=== PATIENT | male | born 1955 | race Caucasian/White ===

== ENCOUNTER 2018-06-06 14:50 | Inpatient (IN) ==
[2018-06-06] MEDS ORDERED: Bisacodyl 10 MG RECTAL SUPPOSITORY RC PRN (15:06)
[2018-06-06] MEDS ORDERED: Atropine 1% Opth Drops 100 DROP/5 ML BOTTLE SL PRN (15:06)
[2018-06-06] MEDS: *HR* FentaNYL (PF) 100 MCG/2 ML VIAL IVP SCH ×3 (16:52→21:35)
[2018-06-06] MEDS: *HR* Promethazine 25 MG/ML VIAL IVP PRN ×2 (19:00→23:06)
[2018-06-06] MEDS: *HR* FentaNYL (PF) 100 MCG/2 ML VIAL IVP PRN (19:00)
[2018-06-06] MEDS: *HR* LORazepam 2 MG/ML VIAL IVP PRN (22:49)
[2018-06-07] MEDS: *HR* FentaNYL (PF) 100 MCG/2 ML VIAL IVP SCH ×6 (01:05→14:44)
[2018-06-07 07:12] VITALS: BP 45/29
[2018-06-07] MEDS: *HR* Promethazine 25 MG/ML VIAL IVP PRN (08:18)
[2018-06-07] MEDS: *HR* FentaNYL (PF) 100 MCG/2 ML VIAL IVP PRN ×3 (09:54→18:45)
[2018-06-07] MEDS: *HR* LORazepam 2 MG/ML VIAL IVP PRN ×4 (09:59→17:48)
[2018-06-07] MEDS ORDERED: *HR* FentaNYL (PF) 100 MCG/2 ML VIAL IVP PRN (11:38)
--- NOTE | 2018-06-07 11:38 | Pallative History & Physical ---
Date of Encounter: 06/08/18 Time of Encounter: 11:38 Assessment and Plan (1) Abdominal pain Status: Acute Patient was started on fentanyl 25mcg q3hrs scheduled and q1hr prn. He has been receiving all doses, as well as ativan this morning. He remains restless, tossing and turning in bed, and moaning in pain. Fentanyl dose increased to 50 mcg q3hrs scheduled. continue current prn doses. Qualifiers: Abdominal location: generalized Qualified Code(s): R10.84 - Generalized abdominal pain (2) Agitation Status: Acute Ativan 0.5mg q4hr prn. patient is received 2 doses in 24hrs. Per family it seems to help but wears out fast. Will change to 1mg q2hrs (3) Hospice care Status: Acute Nausea: promethazine Iv q4hrs anxiety: Ativan q4hrs prn, will add Haldol 1 mg q2hrs prn Secretions: atropine prn Constipation: Bisacodyl RC HS prn (4) Goals of care, counseling/discussion Status: Acute Family was present at the bedside and updated frequently on patient's condition and plan of care. Patient continues to need [facility] admission for management of pain, use of IV medication, and frequent medication dosing and changes. Appears to be actively dying. In the unlikely event that patient stabilizes, plan is to return home with hospice. (5) Acute kidney injury superimposed on CKD Status: Chronic Patient is anuric, will remove mann. (6) Metastatic malignant neoplasm of unknown primary site Status: Acute comfort measures only Internal Medicine - H&P: HPI Chief complaint: abdominal pain Admitted From: Intrahospital Transfer Plans for Post Hospital Care: at Medical Facility History of present illness: Mr. 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 On admission labs showed metabolic acidosis with Bicarb 8, ARPAN cr 9.4. Was admitted to MICU. Nephrology consult was placed and pt declined HD. Palliative care met with patient and family, decision was made for DNRCC and de-escalation of care. Patient was in pain, unable to tolerate PO due to nausea and vomiting. He was admitted to [facility] for symptom management. Today patient was drowsy, opening eyes transiently to name calling and touch, moaning and restless due to pain. Nodding yes or no, but not speaking. Mann beg is empty. Per the nausea improved. Past Med Surg Social Fam HX - Past Medical History Medical history: cancer, CHF, diabetes, hyperlipidemia, hypertension, renal disease Additional medical history: liver mass, bells palsy, mono with enlarged spleen, sleep apnea, Psychiatric history: no psych history - Past Surgical History Surgical History: appendectomy, orthopedic, other Additional surgical history: lazer eye surgery,colon polyps,liver biopsy, left shoulder tendon repair bone spur removal-2013, tonsil removal-1961, macular degen laser eye surgery-2015, colonoscopy-2017, liver biospy-2018 - Social History Smoking Status: Current every day smoker Smokeless Tobacco Status: No Alcohol use: none Drug use: none Internal Medicine - H&P: Meds Carvedilol [Coreg] 6.25 mg PO BIDWM 08/24/17 [History] Insulin Glargine,Hum.rec.anlog [Lantus Solostar] 80 unit SQ BID 08/24/17 [History] NIFEdipine [Nifedipine ER] 90 mg PO DAILY 08/24/17 [History] Tamsulosin [Flomax] 0.4 mg PO DAILY 08/24/17 [History] Verapamil HCl [Verapamil ER] 180 mg PO DAILY 08/24/17 [History] Furosemide [Lasix] 80 mg PO DAILY 10/06/17 [History] Lisinopril [Zestril] 40 mg PO DAILY 10/06/17 [History] Aspirin [Lo-Dose Aspirin EC] 81 mg PO DAILY 06/05/18 [History] Fluticasone Propionate Nasal [Flonase] 50 mcg NS DAILY PRN 06/05/18 [History] Varenicline Tartrate [Chantix] 1 mg PO BID 06/05/18 [History] Allergy/AdvReac Type Severity Reaction Status Date / Time Sulfa (Sulfonamide Allergy Anaphylaxis Verified 05/16/18 13:54 Antibiotics) ROS unobtainable: due to mental status - Gastrointestinal Gastrointestinal: abdominal pain, no nausea, no vomiting Palliative Care-Exam - Constitutional Vitals: Temp Pulse Resp BP Pulse Ox 97.4 F L 73 16 45/29 100 06/06/18 19:31 06/07/18 07:10 06/07/18 07:10 06/07/18 07:10 06/07/18 08:29 General appearance: Present: mild distress Exam: agitated - Head Head Exam: Present: normal inspection - Eye Eye exam: Present: normal appearance - ENT ENT exam: Present: mucous membranes dry - Neck Neck exam: Present: full ROM - Respiratory Respiratory exam: Present: CTAB - Cardiovascular Cardiovascular exam: Present: RRR, +S1, +S2 - GI/Abdominal Exam GI/Abdominal exam: Present: normal bowel sounds, soft, tenderness - Catheter Type: Urethral (Mann) (no urine in mann) - Extremities Exam Extremities exam: Present: full ROM. Absent: pedal edema - Neurological Exam Additional comments: drowsy, answering question by nodding, non verbal - Psychiatric Psychiatric exam: Present: agitated Palliative Quality Palliative Quality: Screen for Code Status: Yes, Screen for Goals of Care: Yes, Screen for Pain: Yes, If Pain Regimen Started, Initiate Bowel Regimen: Yes, Screen for Nausea/Vomitting: Yes Code Status: 06/06/18 15:06 Resuscitation Status: Active [RES] Routine Comment: Resuscitation Status: DNR-Comfort Care
[2018-06-07] MEDS ORDERED: FentaNYL (PF) 1,000 MCG in 0.9 % Sodium Chloride 80 ML IVC SCH (15:45)
[2018-06-07] MEDS ORDERED: Haloperidol Lactate 5 MG/ML VIAL IVP PRN (16:00)
--- NOTE | 2018-06-07 16:00 | Event Note ---
Date of Encounter: 06/07/18 Time of Encounter: 15:56 Patient was re-evaluated in the afternoon, he continues to be restless and agitated, complaining of pain. Will start a fentanyl drip. Haldol added for agitation. Family explained that medication increase is needed to achieve comfort, but may contribute to BP drop, therefore accelerating patient's demise. Family demonstrates understanding and agreeable. Hospice [facility] was present to talk to family. Hospice was made aware that patient's parents are at risk of complicated grief.
== END 2018-06-07 19:53 | disposition expired | DRG 951 ==
LOC: 2ANU 15:39
PROVIDERS: ADMIT Internal Medicine Hospice and Palliative Medicine; ATTEND Internal Medicine Hospice and Palliative Medicine